=== PATIENT | female | born 1985 | race African-American/Black ===

== ENCOUNTER 2022-04-01 16:31 | Emergency (ER) | payer OTHER, SELFPAY ==
[2022-04-01 16:38] VITALS: BP 182/102; PULSE 75; RESP 18; TEMP 36.2; O2SAT 100
--- NOTE | 2022-04-01 16:51 | ED.FEMALEGU ---
HPI - Female Genitourinary General Chief complaint: Urogenital-Female Stated complaint: Vaginal Discharge Time Seen by Provider: 04/01/22 16:51 Source: patient and RN notes reviewed Mode of arrival: ambulatory Limitations: no limitations History of Present Illness HPI Narrative: 36-year-old female presented for complaint of vaginal irritation and yellow vaginal discharge over the last few days. She denies significant pain, burning, itching, or odor. She denies hematuria, dysuria, frequency, nausea, vomiting, diarrhea, fevers or chills. She denies known STD contacts, but is agreeable to testing today. Also concern for UTI. Not taking anything for symptoms. Related Data Home Medications Medication Instructions Recorded Confirmed chlorthalidone 25 mg tablet 25 mg DIRECTED 04/01/22 04/01/22 clotrimazole 1 % topical cream 1 applic topical DIRECTED 04/01/22 04/01/22 lisinopril 5 mg tablet 5 mg DIRECTED 04/01/22 04/01/22 Allergies Allergy/AdvReac Type Severity Reaction Status Date / Time No Known Allergies Allergy Verified 04/01/22 16:54 Review of Systems Review of Systems: CONSTITUTIONAL: Denies body aches, fever, chills, or sweats. CARDIOVASCULAR: Denies chest pain, palpitations, or edema. RESPIRATORY: Denies cough or dyspnea. GASTROINTESTINAL: Denies abdominal pain, nausea, vomiting, or diarrhea. GENITOURINARY: Denies dysuria, frequency, urgency, hematuria, flank pain SKIN: Denies rash, itching, or wounds. MUSCULOSKELETAL: Denies back pain or myalgia. PMFSH Comments At time of signature, I have reviewed and agree with nursing past medical, surgical, social and family history unless otherwise noted. Please see nursing chart for further information. There is no relevant family history pertinent to the presenting complaint Exam Narrative: GENERAL: Well-appearing and in no acute distress. ENT: Mucous membranes pink and moist. NECK: Normal AROM. Supple. CHEST: No respiratory distress. Clear to auscultation. HEART: Regular rate and rhythm. ABDOMEN: Soft, nontender, nondistended, normal active bowel sounds. No CVA tenderness : Speculum Exam - normal vaginal introitus, pink with moderate amount thin yellow discharge; no bleeding or foreign body, laceration or lesions. No swelling. Nontender. normal appearance of the cervix, closed; Chaperoned by Krista REED SKIN: Warm, dry, no rash. NEURO: No focal deficits. Alert and oriented x3. Gait steady. PSYCH: Normal affect. Course Course Emergency Course: Patient is aware of diagnosis, understands and agrees to treatment plan. Anticipatory guidance given. Patient agrees to follow-up as directed and is aware of reasons to seek care at the emergency department. Portions of this record may have been created with voice recognition software Level of Care: Express Care Visit Vital Signs Vital signs: Vital Signs Temperature 97.2 F L 04/01/22 16:38 Pulse Rate 75 04/01/22 16:38 Respiratory Rate 18 04/01/22 16:38 Blood Pressure 182/102 H 04/01/22 16:38 Pulse Oximetry 100 04/01/22 16:38 Oxygen Delivery Room Air 04/01/22 16:38 Temperature 97.2 F L 04/01/22 16:38 Pulse Rate 75 04/01/22 16:38 Respiratory Rate 18 04/01/22 16:38 Blood Pressure 163/93 H 04/01/22 18:14 Pulse Oximetry 100 04/01/22 16:38 Oxygen Delivery Room Air 04/01/22 16:38 Reviewed MDM - Female Genitourinary MDM Narrative Medical decision making narrative: BP elevated. Improved with recheck but remains elevated. patient is advised to f/u with pcp. Patient presenting with concern for UTI and STD. Urine specimen collected for Urine culture, GC, chlamydia, trich. Informed Pt will be contacted w/ results when they become available if they are positive. Discussed with patient that it takes up to 7 days for results of cultures to be released and explained that we may treat empirically at this time.Discussed PE findings with pelvic exam with pt, declines nitin
[2022-04-01 18:14] VITALS: BP 163/93
== END 2022-04-01 18:14 | disposition home or self-care (01) ==
PROVIDERS: Emergency Provider Nurse Practitioner Family
DX: N89.8 Other specified noninflammatory disorders of vagina (principal); I10 Essential (primary) hypertension
CPT/HCPCS: 81003; 87077; 87086; 87088; 87491; 87591; 87661; 99204; G0463